=== PATIENT | female | born 1945 | race Caucasian/White ===

== ENCOUNTER → 2020-04-16 | Outpatient (CLI) | payer MEDICARE, BC ==
[~2020-04-16] MED LIST: AMLODIPINE BESY10 MG PO; ASPIRIN325 PO; COLACE100 MG PO; COUMADIN 2.5MG2.5 M1 PO; COUMADIN 5 MG TA5 M1 PO; COZAAR 50 MG TA50 M2 PO; CYMBALTA30 MG PO; ENOXAPARIN40 MG/0.1 SUBQ; HYDROCHLOROTHIA25 M2 PO; IRON325 M1 PO; KEFLEX500 M1 PO; LIPITOR 20 MG T20 M1 PO; LOPRESSOR50 PO; METFORMIN HCL500 MG PO; MILK OF MA2400 MG/10 PO; OXYCODONE HCL 55 MG PO; PLAVIX 75 MG TA75 M1 PO; PRILOSEC 20 MG20 MG PO; SYNTHROID100 MCG PO; TRAMADOL 50 MG50 MG PO
== END ==
LOC: M.MRI 04-12 10:00
PROVIDERS: ATTEND Orthopaedic Surgery
DX: S22.070A Wedge compression fracture of T9-T10 vertebra, initial encounter for closed fracture (principal); M48.05 Spinal stenosis, thoracolumbar region; G89.29 Other chronic pain; M48.07 Spinal stenosis, lumbosacral region; M51.36 Other intervertebral disc degeneration, lumbar region; M48.061 Spinal stenosis, lumbar region without neurogenic claudication; M25.78 Osteophyte, vertebrae